=== PATIENT | female | born 1940 | race Caucasian/White ===

== ENCOUNTER 2021-07-30 07:56 | Emergency (ER) | payer MEDICARE ==
[~2021-07-30] VITALS: Ht 177.8 cm; Wt 75.0 kg
[2021-07-30] MEDS ORDERED: ACETAMINOPHEN 500 MG TABLET PO ONE (08:45)
[2021-07-30] MEDS ORDERED: LIDOCAINE/EPI/TETRACAINE TOPICAL GEL 3 ML. TP ONE (08:45)
[2021-07-30] MEDS ORDERED: LIDOCAINE 1%/EPI 1:100,000 20 ML VIAL. INJ ONE (08:45)
[2021-07-30] MEDS ORDERED: DIPHTH,PERTUSS(ACELL),TET TOX 0.5 ML DISP.SYRIN. VAX IM ONE (08:45)
--- NOTE | 2021-07-30 12:31 | PHYS DOC ---
Past Medical History Additional Past Medical Histor: HEMILEGIA & HEMIPARESIS POST CEREBROVASCULAR DISEASE, EPILEPSY Past Surgical History: No Surgical History Smoking Status: Never Smoker Alcohol Use: None Adult General Chief Complaint Chief Complaint: LACERATION/AVULSION HPI HPI The patient is a 80-year-old female who presents for evaluation of a laceration to her right swift sustained prior to arrival when she got cut while being transferred at the nursing facility. No other injury sustained during the episode. Tetanus not up-to-date. Calm, cooperative and oriented x4, in no dis tress. Review of Systems Review of Systems A 12 point review of systems was completed and was negative except where noted in HPI above. Current Medications Current Medications Current Medications Medications (Trade) Dose Ordered Sig/[place] Start Time Stop Time Status Last Admin Dose Admin Acetaminophen (Tylenol) 1,000 mg 1X ONCE 07/30/21 08:45 07/30/21 08:46 DC 07/30/21 09:03 1,000 MG Diphtheria/ Tetanus/Acell Pertussis (Boostrix) 0.5 ml ONCE ONCE 07/30/21 08:45 07/30/21 08:46 DC 07/30/21 09:02 0.5 ML Lidocaine/ Epinephrine (LIDOCAINE 1%-EPI 1:100,000 Multi-Dose) 20 ml 1X ONCE 07/30/21 08:45 07/30/21 08:46 DC 07/30/21 12:07 20 ML Tetracaine/ Epinephrine/ Lidocaine (Let (Glhs-Ovwbxtc-Fufen) Gel) 3 ml 1X ONCE 07/30/21 08:45 07/30/21 08:46 DC 07/30/21 09:02 3 ML Allergies Allergies Allergies Coded Allergies Type Severity Reaction Last Updated Verified cefepime Allergy Severe coma 07/30/21 Yes morphine Adverse Reaction Intermediate upset stomach 07/30/21 Yes Physical Exam Physical Exam Elderly female appearing nontoxic and in no acute distress. Head is normocephalic and atraumatic. Neck is supple and nontender. Oropharynx is moist. Lungs are clear to auscultation at all stations. There is a normal S1 and S2 without rubs or gallops and capillary refill is appropriate, less than 2 seconds globally. Abdomen is soft, nontender and nondistended. Skin is warm and dry without cyanosis, clubbing or edema. Psychiatrically, the patient demonstrates appropriate mood and affect and is alert. Evaluation of the right leg is remarkable for a flap-like superficial laceration, about 4 cm in length, to the anterior lateral right mid swift. Right lower extremity is neurovascularly intact distally with strength out of 5, sensation intact light touch in all nerve distributions, DP and PT pulse 2+, capillary refill less than 2 seconds, foot warm and well-perfused. Current Patient Data Vital Signs Vital Signs Date Time Temp Pulse Resp B/P (MAP) Pulse Ox O2 Delivery O2 Flow Rate FiO2 07/30/21 11:59 68 158/71 (100) 94 Room Air 07/30/21 09:29 16 07/30/21 08:05 97.9 97.9 EKG EKG [] Radiology/Procedures Radiology/Procedures Laceration repair procedure: Laceration to right mid swift repaired with 3-0 silk suture; 13 sutures placed in total. Wound well approximated. Estimated blood loss 1 mL. Patient tolerated the repair well. No complications. [] Course & Med Decision Making Course & Med Decision Making Laceration repaired as per procedure note. Patient tolerated well. Wound dressing placed. Tetanus updated. Will discharge back to nursing facility. Patient is to have stitches out in about 10 days. She understands that if he f eels worse instead of better or develops other new symptoms of concern that she should return to the emergency department immediately for reevaluation. All questions are answered. Dragon Disclaimer Dragon Disclaimer This electronic medical record was generated, in whole or in part, using a voice recognition dictation system. Departure Departure Impression: Primary Impression: Laceration of right lower leg without complication Disposition: HOME / SELF CARE / HOMELESS Condition: IMPROVED Referrals: ASHLEY ALVAREZ MD (PCP) Patient Instructions: Laceration Care, Adult Additional Instructions: Follow-up very closely with your primary care doctor in the office in the next 2 to 4 days for a reevaluation of your symptoms and a discussion of next best steps in care. You may apply bacitracin or Neosporin twice a day to your laceration to prevent infection. Change the dressing daily. Stitches will need to be taken out in 7 to 10 days. It is possible that the stitches may pull out as the skin flap we stitched into place is very thin. If this happens, the wound will just have to heal on its own without stitches. You may take Tylenol as needed for any discomfort. Return to the emergency department right away for worsening symptoms of any kind or with any other new symptoms of concern. Problem Qualifiers Primary Impression: Laceration of right lower leg without complication Encounter type: initial encounter Qualified Codes: S81.811A - Laceration without foreign body, right lower leg, initial encounter AYDIN GIBBS MD Jul 30, 2021 12:31
[2021-07-30] MEDS ORDERED: BACITRACIN TOPICAL OINT PACKET. TP ONE (12:45)
[2021-07-30 14:29] VITALS: BP 187/78
== END 2021-07-30 14:37 | disposition home or self-care (01) ==
LOC: ER 07:56
DX: S81.811A Laceration without foreign body, right lower leg, initial encounter (principal); Z88.5 Allergy status to narcotic agent; Z88.8 Allergy status to other drugs, medicaments and biological substances; Y28.8XXA Contact with other sharp object, undetermined intent, initial encounter; Y93.89 Activity, other specified; Y92.89 Other specified places as the place of occurrence of the external cause; Y99.8 Other external cause status
CPT/HCPCS: 12002; 90471; 90715; 99285; J3490